=== PATIENT | male | born 1970 | race Caucasian/White ===

== ENCOUNTER → 2022-01-24 13:18 | Outpatient (BNVA) | payer OTHER, SELFPAY | PROVIDERS: Visit Provider Surgery | DX: L72.3 Sebaceous cyst (principal) | CPT/HCPCS: 99202 ==

== ENCOUNTER → 2022-01-31 09:05 | Outpatient (BNVA) | payer OTHER, SELFPAY | PROVIDERS: Visit Provider Surgery | DX: L72.3 Sebaceous cyst (principal) | CPT/HCPCS: 11403; 99212 ==

== ENCOUNTER 2022-11-10 12:41 | Outpatient (REF) | payer OTHER, SELFPAY ==
--- NOTE | ~2022-11-10 | US_ITS ---
EXAMINATION: US SCROTUM CLINICAL INFORMATION: Left testicular pain. COMPARISON: None available. TECHNIQUE: A sonogram of the scrotum was performed assessing dudley-scale appearance and color Doppler flow. Spectral Doppler analysis of the arterial and venous flow were performed in the testes bilaterally. FINDINGS: RIGHT: Right testicle measures 3.8 x 2.4 x 2.9 cm, volume 13.5 mL. No focal testicular parenchymal lesions are visualized. Spectral Doppler analysis of the arterial and venous flow is normal in the right testis. Right epididymal head is normal in size. There are epididymal head cysts versus spermatoceles, the largest measuring 3 mm. A small right hydrocele is seen. There is a 4 mm varicocele, accentuated by Valsalva maneuver. Right epididymal Doppler flow is normal. LEFT: Left testicle measures 3.9 x 2.3 x 2.5 cm, volume 11.6 mL. No focal testicular parenchymal lesions are visualized. Spectral Doppler analysis of the arterial and venous flow is normal in the left testis. Left epididymal head is normal in size. There are epididymal head cysts versus spermatoceles, the largest measuring 3 mm. No left hydrocele or varicocele is seen. Left epididymal Doppler flow is normal. US/US scrotum IMPRESSION: 1. There are very small bilateral head cysts versus spermatoceles. 2. A right varicocele is seen, and there is no left varicocele. Recommend cross-sectional imaging of the abdomen and pelvis to exclude the possibility of retroperitoneal mass. 3. A small right hydrocele is seen.
== END 2022-11-10 12:42 | disposition home or self-care (01) ==
LOC: HO.US 12:41
PROVIDERS: Visit Provider Emergency Medicine
DX: N50.812 Left testicular pain (principal)
CPT/HCPCS: 76870

== ENCOUNTER 2022-11-22 08:34 | Outpatient (REF) | payer OTHER, SELFPAY ==
[2022-11-22 11:41] LABS: Blood Urea Nitrogen 15 mg/dL (9-16); Estimated Glomerular Filt Rate > 60
== END 2022-11-22 08:35 | disposition home or self-care (01) ==
LOC: HO.HHCL 08:34
PROVIDERS: Visit Provider Emergency Medicine
DX: R93.89 Abnormal findings on diagnostic imaging of other specified body structures (principal); I86.1 Scrotal varices
CPT/HCPCS: 36415; 82565; 84520

== ENCOUNTER 2022-12-28 07:56 | Outpatient (REF) | payer OTHER, SELFPAY ==
--- NOTE | ~2022-12-28 | CT_ITS ---
EXAMINATION: CT ABDOMEN AND PELVIS WITH CONTRAST CLINICAL INFORMATION: Abnormal findings right varicocele COMPARISON: Ultrasound scrotum from 11/10/2022 TECHNIQUE: Multidetector volumetric images were obtained from the superior aspect of the liver through the pubic symphysis following administration 85 mL of Omnipaque 350 intravenous contrast. Sagittal and coronal reformatted images were obtained on the technologist's workstation. Oral contrast: No This CT examination was performed using dose optimization techniques as appropriate, variously including the following: *Automated exposure control *Adjustment of mA and/or kV according to patient size (this includes techniques or standardized protocols for targeted exams where dose is matched to indication/reason for exam; i.e. extremities or head) *Use of iterative reconstruction technique DLP: 524 mGy-cm FINDINGS: LUNG BASES: Bibasilar atelectasis. No pneumothorax. No large pleural effusion. LIVER, GALLBLADDER, AND BILIARY TREE: The liver is normal in size and shape. Decreased hepatic attenuation suggesting hepatic steatosis. No focal hepatic lesion or biliary ductal dilatation is present. The gallbladder is unremarkable with no evidence of radiopaque gallstones, gallbladder wall thickening, or obvious pericholecystic inflammatory changes. PANCREAS: Unremarkable. SPLEEN: Unremarkable. ADRENAL GLANDS: Unremarkable. KIDNEYS AND URETERS: Exophytic hypodense focus along the posterior aspect of the left renal interpolar region to small to characterize though statistically representing cysts. Additional subcentimeter hypodensities noted in the lateral aspect of the left renal upper pole statistically representing cysts. The kidneys are normal in size, shape, and attenuation. No hydronephrosis, hydroureter, or calculi seen. No perinephric stranding. BLADDER: Unremarkable. GASTROINTESTINAL TRACT: The small and large bowel are unremarkable. The appendix is unremarkable. ABDOMINAL WALL: Small fat filled umbilical hernia. Small fat filled bilateral inguinal hernia. LYMPH NODES: No enlarged lymph nodes per size criteria. VASCULAR: Unremarkable. PELVIC VISCERA: Prostate measures 5.2 cm coarse calcifications within its body. OSSEOUS STRUCTURES: Normal degenerative changes of the thoracolumbar lumbosacral spine. Sclerotic focus in the right pubic symphysis nonspecific though statistically representing. Degenerative arthropathy of the left sacroiliac joint. CT/CT abdomen pelvis w IV con IMPRESSION: 1. No acute process of the abdomen or pelvis identified. 2. Decreased hepatic attenuation suggesting hepatic steatosis. 3. Exophytic hypodense focus along the posterior aspect of the left renal interpolar region to small to characterize though statistically representing cysts. Additional subcentimeter hypodensities noted in the lateral aspect of the left renal upper pole statistically representing cysts. 4. Small fat filled umbilical hernia. Small fat filled bilateral inguinal hernia. 5. Prostate measures 5.2 cm coarse calcifications within its body.
[2022-12-28] MEDS: Barium Sulfate Oral (Berry) 450 ML ORAL.SUSP 900 ML PO (11:16)
[2022-12-28] MEDS: iohexoL 350 MG/ML 100 ML INFUS..BTL IV (11:16)
[2022-12-29 09:06] LABS: Creatinine POC 0.7 mg/dL (0.5-1.4); GFR POC 60
== END 2022-12-28 07:57 | disposition home or self-care (01) ==
LOC: HO.CT 07:56
PROVIDERS: Visit Provider Emergency Medicine
DX: R93.89 Abnormal findings on diagnostic imaging of other specified body structures (principal)
CPT/HCPCS: 74177; 82565; Q9967

== ENCOUNTER 2023-01-13 12:13 | Outpatient (AMB) | payer OTHER, SELFPAY ==
--- NOTE | 2023-01-13 12:48 | A.OFFVIS_ITS ---
Intake Vital Signs 01/13/23 12:52 Height 5 ft 4 in Weight 200 lb 2.876 oz BMI 34.4 BP 138/67 Blood Pressure Location Lt brachial Position Sitting Pulse 50 Intake Visit Reasons: umbilical hernia Intake Note: Patient is seen in office for evaluation of an umbilical hernia. Patient c/o: onset for months, does not feel a lump, feels discomfort around the right groin, denies diarrhea, constipation, nausea, vomit, had CT scan done Digital Publishing Specialist Required: Yes Digital Publishing Specialist Language: Manager Chinese Name: Yanet MULLINS Information Interpreted: non-clinical & clinical Extension Agent: Extension Agent Present Accompanied by: Family/Other Allergies No Known Allergies [No Known Allergies*] Allergy (Verified 01/13/23 12:55) Medication List - Last Reconciled 01/13/23 by Estuardo Jiménez MD levothyroxine 75 mcg PO DAILY HPI HPI Comments History of Present Illness Details The patient is a 52-year-old American-speaking gentleman referred from his PCP due to left testicular pain, or according to office notes from earlier this year. He is accompanied by his significant other and gave permission via auxiliary equipment operator to speak in front of her. Via auxiliary equipment operator, the patient reports LEFT groin pain that is been present for several months. Per PCP notes, the patient apparently had left groin pain years ago and was evaluated in [place] and advised that he might be developing hernia. Patient denies any umbilical or right groin pain and notes that his left groin pain radiates to his left lumbar area and is worse with movement, walking up stairs and bending over. 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 He denies any cough, urinary difficulty or constipation. He does note a family history of his sister dying from colorectal cancer in her 40s. In reviewing the EMR, the patient had a colonoscopy in jan, 2020 with a hyperplastic polyp resected and recommendation to repeat in 5 years. The patient is unaware of any pediatric/ groin operations or prior history of inguinal hernia. He denies any abdominal operations. He does note a family history of type 2 diabetes in his mother. [facility] Surgical History History of colonoscopy Family History Sister Colon cancer Paternal Uncle Colon cancer Paternal Uncle Colon cancer Social History Alcohol intake: current Alcohol intake frequency: holidays/special occasions only Patient Tobacco Use Status: Never used Tobacco Review of Systems Const All systems reviewed & are unremarkable except as noted in HPI and below Reports as per HPI Physical Exam Vital Signs: Last Vital Signs Pulse 50 01/13/23 12:52 BP 138/67 01/13/23 12:52 The patient is non-toxic & in good spirits NC/AT, PERRLA, EOMI Mood, affect & judgment all appear appropriate Sclera anicteric conjunctiva pink and moist Oropharynx is clear with no aphthous ulcers, Mallampati class 4, mucous membranes moist Neck is supple with no masses, adenopathy or bruits Heart is regular, normal S1-S2 no rubs or murmurs Lungs are clear and equal anteriorly with no audible wheezing, rubs or dullness to percussion Abdomen is obese with no demonstrable hernias. The patient was examined both supine and standing and with Valsalva and a small left inguinal hernia that is spontaneously reducible was appreciated, but in a month clear as to whether the patient has a right inguinal hernia or large cord lipoma and no umbilical hernia is obvious on exam. No HSM, rebound, rigidity, guarding, masses or bruits are present. Rectal exam is deferred Skin has good turgor and is free of rashes Extremities free of cyanosis clubbing edema Results Reviewed Results Reviewed: I reviewed the actual images and report of the patient's CT of the abdomen and pelvis dated 12/28/2022 There is an obvious small umbilical hernia that is less than a cm in defect with fat There appears to be a discrete left inguinal hernia but the right inguinal cord structures, it is less clear whether the patient has a large lipoma or a right inguinal hernia Assessment & Plan Assessment & Plan (1) Deep inguinal pain, left: Code(s): R10.32 - Left lower quadrant pain (2) Left inguinal hernia: Code(s): K40.90 - Unilateral inguinal hernia, without obstruction or gangrene, not specified as recurrent (3) Elevated glucose level: Code(s): R73.09 - Other abnormal glucose (4) NAFLD (nonalcoholic fatty liver disease): Code(s): K76.0 - Fatty (change of) liver, not elsewhere classified (5) BMI 35.0-35.9,adult: Code(s): Z68.35 - Body mass index [BMI] 35.0-35.9, adult (6) Left lumbar pain: Code(s): M54.50 - Low back pain, unspecified Plan Via auxiliary equipment operator, I explained to the patient and his partner that he has a small umbilical hernia that is not obvious on exam, there is a possible right inguinal hernia verses cord lipoma on my interpretation and a left inguinal hernia that is small and reducible. It is unclear whether the pain radiating from his groin to his back is related to the hernia or due to primary lumbar disc/back dise ase. Patient is advised of symptoms to monitor. He specifically denied any umbilical or right groin pain and notes that this is been a chronic left groin problem for several years. See orders; given his previously elevated blood glucose at 106, family history of diabetes and his mother & his obesity with a BMI of 34.4, have ordered a hemoglobin A1c & additional labs. The patient will monitor his symptoms elated to activity and will see me for 30 minute follow-up to review the labs and consider whether referral for an MRI of his back is in order. We briefly discussed inguinal hernia repair with the inherent risks of bleeding, infection and recurrence as well as the possibility of ongoing lumbar back pain if he has a primary spine issues. Inguinodynia from the hernia mesh was also reviewed. Patient's questions seemed to be satisfactorily answered. Colorectal cancer screening is deferred to the patient's PCP based on high risk family history. Orders: Orders Comprehensive Met. Panel Today K40.90 - Unilateral inguinal hernia, without obstruction or gangrene, not specified as recurrent, R10.32 - Left lower quadrant pain, R73.09 - Other abnormal glucose Hemoglobin A1c Today K40.90 - Unilateral inguinal hernia, without obstruction or gangrene, not specified as recurrent, R10.32 - Left lower quadrant pain, R73.09 - Other abnormal glucose Prealbumin Today K40.90 - Unilateral inguinal hernia, without obstruction or gangrene, not specified as recurrent, R10.32 - Left lower quadrant pain, R73.09 - Other abnormal glucose Complete Blood Count Auto Diff Today K40.90 - Unilateral inguinal hernia, without obstruction or gangrene, not specified as recurrent, R10.32 - Left lower quadrant pain, R73.09 - Other abnormal glucose Coding Level of Care Code Est Pt Level 4 (94563) Diagnoses Deep inguinal pain, left R10.32 Left inguinal hernia K40.90 Elevated glucose level R73.09 NAFLD (nonalcoholic fatty liver disease) K76.0 BMI 35.0-35.9,adult Z68.35 Left lumbar pain M54.50
[2023-01-13 12:52] VITALS: BP 138/67; PULSE 50; BMI 34.4
== END 2023-01-13 13:14 | disposition home or self-care (01) ==
PROVIDERS: Visit Provider Surgery
DX: R10.32 Left lower quadrant pain (principal); K40.90 Unilateral inguinal hernia, without obstruction or gangrene, not specified as recurrent; R73.09 Other abnormal glucose; K76.0 Fatty (change of) liver, not elsewhere classified; Z68.35 Body mass index [BMI] 35.0-35.9, adult; M54.50 Low back pain, unspecified
CPT/HCPCS: 99214

== ENCOUNTER 2023-01-13 12:13 | Outpatient (REF) | payer OTHER, SELFPAY ==
[2023-01-13 13:29] LABS: MANUAL DIFF FLAG NO
[2023-01-13 13:55] LABS: Basophils Percent Auto 0.6 % (0-2); Eosinophils Absolute Auto 0.1 X10*3/uL (0.0-0.4); Hematocrit 47.5 % (42.0-52.0); Hemoglobin 15.9 g/dl (14.0-18.0); Imm Gran Abs Auto 0.04 X10*3/uL (0.00-0.03); Imm Gran Pct Auto 0.6 % (0.0-0.4); Lymphocytes Absolute Auto 2.1 X10*3/uL (1.2-4.9); Lymphocytes Percent Auto 32.1 % (20-40); Mean Corpuscular HGB Conc 33.5 g/dl (31.0-36.0); Mean Corpuscular Hemoglobin 30.3 pg (27.0-33.0); Mean Corpuscular Volume 90.5 fL (80.0-98.0); Mean Platelet Volume 11.7 fL (9.4-12.4); Monocytes Absolute Auto 0.6 X10*3/uL (0.1-1.2); Monocytes Percent Auto 8.8 % (2-11); Neutrophils Absolute Auto 3.7 x10*3/uL (2.0-8.3); Neutrophils Percent Auto 55.9 % (45-73); Platelet Count 185 X10*3/uL (160-400); Red Blood Count 5.25 X10*6/uL (4.60-5.80); Red Cell Distribution Width 13.1 % (11.0-16.0); White Blood Count 6.6 X10*3/uL (4.8-10.8)
[2023-01-13 14:21] LABS: Estimated Average Glucose 114 mg/dL; Hemoglobin A1c % 5.6 % (<6.0)
[2023-01-13 14:37] LABS: Alanine Aminotransferase 24 U/L (0-40); Albumin Level 4.3 g/dL (3.5-5.0); Alkaline Phosphatase 138 U/L (39-117); Anion Gap 15 (12-20); Aspartate Amino Transferase 17 U/L (5-37); Bilirubin Total 0.8 mg/dL (0.0-1.0); Blood Urea Nitrogen 17 mg/dL (9-16); Calcium 9.9 mg/dL (8.4-10.2); Carbon Dioxide 24 mmol/L (22-29); Chloride 106 mmol/L (96-108); Estimated Glomerular Filt Rate > 60; Glucose Random 110 mg/dL (60-115); Potassium 4.5 mmol/L (3.3-5.1); Sodium 140 mmol/L (135-145); Total Protein 7.4 g/dL (6.5-8.0)
== END 2023-01-13 12:14 | disposition home or self-care (01) ==
LOC: HO.LAB 12:13
PROVIDERS: PCP Nurse Practitioner Primary Care; Visit Provider Surgery
DX: R10.32 Left lower quadrant pain (principal); K40.90 Unilateral inguinal hernia, without obstruction or gangrene, not specified as recurrent; R73.09 Other abnormal glucose; K76.0 Fatty (change of) liver, not elsewhere classified; M54.50 Low back pain, unspecified
CPT/HCPCS: 36415; 80053; 83036; 84134; 85025; 99212

== ENCOUNTER 2023-01-20 09:52 | Outpatient (AMB) | payer OTHER, SELFPAY ==
--- NOTE | 2023-01-20 10:09 | MHC.OFFVIS ---
Intake Vital Signs 01/20/23 10:10 Height 5 ft 4 in Weight 201 lb 8.04 oz BMI 34.6 BP 140/71 H Intake Visit Reasons: one week labs results, following [facility] Intake Note: This patient presents for a one week follow-up for lab results and left inguinal hernia. Patient c/o; reports no changes or complaints at this time. Hand Candy Molder Required: Yes Hand Candy Molder Language: Telemetry Nurse Name: Mandie Information Interpreted: non-clinical & clinical Human Resources Professional: Human Resources Professional Present Accompanied by: Spouse Allergies No Known Allergies [No Known Allergies*] Allergy (Verified 01/20/23 10:18) Medication List - Last Reconciled 01/20/23 by Estuardo Jiménez MD clonazepam 0.5 mg PO BID PRN levothyroxine 75 mcg PO DAILY sertraline 100 mg PO DAILY HPI HPI Comments History of Present Illness Details The patient is a 52-year-old Italian-speaking gentleman referred from his PCP due to left testicular pain, or according to office notes from earlier this year. He is accompanied by his significant other and gave permission via machinist wood to speak in front of her. Via machinist wood, the patient reports LEFT groin pain that is been present for several months. Per PCP notes, the patient apparently had left groin pain years ago and was evaluated in [place] and advised that he might be developing hernia. Patient denies any umbilical or right groin pain and notes that his left groin pain radiates to his left lumbar area and is worse with movement, walking up stairs and bending over. 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 In follow-up today, the patient notes that the pain is worse with moving and bending and predominantly located in his back. When I reviewed typical hernia symptoms including left testicular or inguinal pain, the patient denies the symptoms today noting that the pain is in his back and wraps around to his groin. He denies any cough, urinary difficulty or constipation. He does note a family history of his sister dying from colorectal cancer in her 40s. In reviewing the EMR, the patient had a colonoscopy in jan, 2020 with a hyperplastic polyp resected and recommendation to repeat in 5 years. The patient is unaware of any pediatric/ groin operations or prior history of inguinal hernia. He denies any abdominal operations. He does note a family history of type 2 diabetes in his mother. [facility] Surgical History History of colonoscopy Family History Sister Colon cancer Paternal Uncle Colon cancer Paternal Uncle Colon cancer Social History Alcohol intake: current Alcohol intake frequency: holidays/special occasions only Patient Tobacco Use Status: Never used Tobacco Review of Systems Const All systems reviewed & are unremarkable except as noted in HPI and below Reports as per HPI Physical Exam Vital Signs: Last Vital Signs BP 140/71 H 01/20/23 10:10 BMI result Body Mass Index 34.6 On exam, the patient is nontoxic He is in no acute respiratory distress His abdomen is obese and exam is unchanged Results Reviewed Results Reviewed: I reviewed the actual images and report of the patient's CT of the abdomen and pelvis dated 12/28/2022 There is an obvious small umbilical hernia that is less than a cm in defect with fat There appears to be a discrete left inguinal hernia but the right inguinal cord structures, it is less clear whether the patient has a large lipoma or a right inguinal hernia Labs 01/13/23 Hemoglobin 15.9 with normal indices, white blood cells 6.6, platelets 185k BUN was slightly elevated at 17, creatinine 0.83, LFTs and electrolytes within normal parameters Pre-albumin 27 Assessment & Plan Assessment & Plan (1) Left lumbar pain: Code(s): M54.50 - Low back pain, unspecified (2) BMI 35.0-35.9,adult: Code(s): Z68.35 - Body mass index [BMI] 35.0-35.9, adult (3) NAFLD (nonalcoholic fatty liver disease): Code(s): K76.0 - Fatty (change of) liver, not elsewhere classified (4) Left inguinal hernia: Code(s): K40.90 - Unilateral inguinal hernia, without obstruction or gangrene, not specified as recurrent Plan Since last visit when I explained that the patient has a tiny umbilical hernia, a definite left inguinal hernia and possible right inguinal hernia versus lipoma which is completely asymptomatic, we discussed his lumbar pain which seems to be wrapping around to the left groin pain which is common with L5/S1 disc disease. Options were reviewed including left inguinal hernia repair which will not affect his lumbar back pain. The other option would be to request his PCP order an MRI if the L/S spine to correlate with his symptoms and consider pain management injection if the patient is having ongoing symptoms. Signs and symptoms of typical left inguinal hernia were also discussed in the patient denies any symptoms from his left inguinal hernia and wishes to hold on repair. He has requested a follow-up in 6 months since he is returning to [place] for the winter. He will contact me before then if he has questions or problems. MRI of the L/S spine is deferred to the PCP. Coding Level of Care Code Est Pt Level 4 (43850) Diagnoses Left lumbar pain M54.50 BMI 35.0-35.9,adult Z68.35 NAFLD (nonalcoholic fatty liver disease) K76.0 Left inguinal hernia K40.90
[2023-01-20 10:10] VITALS: BP 140/71; BMI 34.6
== END 2023-01-20 10:29 | disposition home or self-care (01) ==
PROVIDERS: Visit Provider Surgery
DX: M54.50 Low back pain, unspecified (principal); Z68.35 Body mass index [BMI] 35.0-35.9, adult; K76.0 Fatty (change of) liver, not elsewhere classified; K40.90 Unilateral inguinal hernia, without obstruction or gangrene, not specified as recurrent
CPT/HCPCS: 99214

== ENCOUNTER → 2023-01-20 09:52 | Outpatient (BNVA) | payer OTHER, SELFPAY | PROVIDERS: Visit Provider Surgery | DX: K40.90 Unilateral inguinal hernia, without obstruction or gangrene, not specified as recurrent (principal); K76.0 Fatty (change of) liver, not elsewhere classified; M54.50 Low back pain, unspecified | CPT/HCPCS: 99212 ==